=== PATIENT | male | born 1960 | race Caucasian/White ===

== ENCOUNTER 2018-02-01 16:22 | Emergency (ER) | payer OTHER ==
[2018-02-01] MEDS: DIPHTH/TET/ACEL PERTUSS (ADULT) 0.5 ML VIAL IM* (18:20)
[2018-02-01] MEDS: MUPIROCIN 2% 22 GM OINT TOP (18:29)
[2018-02-01] MEDS ORDERED: MUPIROCIN 2% 15 GM CR TOP (18:30)
== END 2018-02-01 19:00 | disposition home or self-care (01) ==
LOC: FTE 16:22
DX: S91.332A Puncture wound without foreign body, left foot, initial encounter (principal); X58.XXXA Exposure to other specified factors, initial encounter; Y92.89 Other specified places as the place of occurrence of the external cause; Z23 Encounter for immunization
CPT/HCPCS: 90471; 90715; 99283-25